=== PATIENT | male | born 1995 | race Caucasian/White ===

== ENCOUNTER 2021-12-06 16:52 | Emergency (ER) | payer MEDICAID ==
[2021-12-06 17:31] VITALS: BP 122/101; PULSE 80
[2021-12-06] MEDS ORDERED: Acetaminophen/HYDROcodone 325-5 MG Tab PO ONE (18:27)
== END 2021-12-06 19:10 | disposition home or self-care (01) ==
LOC: JD.ED 16:52
DX: S52.502A Unspecified fracture of the lower end of left radius, initial encounter for closed fracture (principal); W18.30XA Fall on same level, unspecified, initial encounter; Y93.67 Activity, basketball
CPT/HCPCS: 29125; 73110; 99283; A9270